=== PATIENT | male | born 1950 | race Hispanic/Latino ===

== ENCOUNTER 2016-12-14 08:24 | Outpatient (CLI) | payer MEDICARE, OTHER ==
--- NOTE | 2016-12-15 14:48 | Vascular Lab Report ---
LEFT UPPER EXTREMITY VENOUS DUPLEX: REASON FOR EXAM: Left arm swelling COMMENTS ON THE LEFT: All arm veins visualized are freely compressible without evidence of internal echogenicity. The subclavian and internal jugular veins are free of thrombus. Flow is spontaneous and phasic throughout. Left thyroid nodule is noted. Clinical correlation is recommended. Possible formal ultrasound should be considered. COMMENTS ON THE RIGHT: The subclavian and internal jugular veins are free of thrombus. IMPRESSION: No evidence of acute or chronic deep venous thrombosis in the left upper extremity.
== END 2016-12-14 08:25 | disposition home or self-care (01) ==
LOC: VAS 08:24
PROVIDERS: ATTEND Internal Medicine Hematology & Oncology
DX: R22.1 Localized swelling, mass and lump, neck (principal); M79.89 Other specified soft tissue disorders